=== PATIENT | female | born 1985 | race Caucasian/White ===

== ENCOUNTER 2018-05-22 13:46 | Emergency (ER) | END 2018-05-22 16:41 | disposition home or self-care (01) ==

== ENCOUNTER 2018-05-27 09:19 | Emergency (ER) | END 2018-05-27 10:06 | disposition left against medical advice (07) ==

== ENCOUNTER 2019-04-26 09:30 | Emergency (ER) | payer OTHER ==
[~2019-04-26] VITALS: Wt 67.0 kg
[~2019-04-26 09:30] MED LIST: AMOX500C2 PO; CEPH-443 PO; FLUT16SP17 NASAL; NPH10OT BOTH EARS
[2019-04-26 09:41] VITALS: BP 140/89; PULSE 84; RESP 18
--- NOTE | 2019-04-26 09:56 | ERD ---
ER Documentation Chief Complaint Chief Complaint BIZARRE BEHAVIOR, WANTS PHYSICAL? EXAM HPI 33-year-old female presents the emergency department with a number of different complaints. Patient is a tangential historian not providing significant details into any of her situations. Patient states that she has nasal congestion and wants a "physical exam. Again, she has no specific complaints at this time. She is denying auditory or visual hallucinations, suicidal or homicidal thoughts but is tangential to the point of not providing any significant detail. That said, she is able to tell me she has a care plan for self-care. ROS All systems reviewed and are negative except as per history of present illness. Medications Home Meds Active Scripts Fluticasone Propionate* (Fluticasone Propionate* Nasal) 50 Mcg/[place] - 16 Gm [place].susp, 1 SPRAY NASAL BID, #1 BOTTLE TO EACH NOSTRIL Prov:KENROY DOHERTY 04/26/19 Cephalexin* (Keflex*) 500 Mg Capsule, 500 MG PO QID for 5 Days, CAP Prov:MIKE COLÓN 10/23/18 Neomycin/Polymyxin/Hydrocort* (Cortisporin* Otic) 10 Ml Susp, 4 DROP BOTH EARS QID for 7 Days, EA Prov:CARLOZ YEUNG MD 05/22/18 Amoxicillin* (Amoxicillin*) 500 Mg Cap, 500 MG PO TID for 7 Days, CAP Prov:CARLOZ YEUNG MD 05/22/18 Allergies Allergies: Coded Allergies: No Known Allergy (Unverified , 05/22/18) PMhx/Soc Hx Psychiatric Problems: No Hx Miscellaneous Medical Probl: No Hx Alcohol Use: Yes (socially) Hx Substance Use: No Hx Tobacco Use: No Physical Exam Vitals Vital Signs Date Temp Pulse Resp B/P (MAP) Pulse Ox O2 O2 Flow FiO2 Time Delivery Rate 04/26/19 98.1 84 18 140/89 99 09:41 (106) Physical Exam GENERAL: The patient is well developed and appropriate for usual state of health in no apparent distress. She is dressed appropriate for the weather, but seems a bit disheveled HEENT: Pupils equal, round, and reactive to light. EOMI. There is no scleral icterus. NECK: C-spine is soft and supple, there is no meningismus. There is no cervical lymphadenopathy. LUNGS: Clear to auscultation bilaterally. There are no rales, wheezes or rhonchi. HEART: Regular rate and rhythm, no murmurs, clicks, rubs or gallops. ABDOMEN: Soft, non-tender, non-distended. There are bowel sounds in all four quadrants. No rebound or guarding. EXTREMITIES: There is no peripheral cyanosis or edema. No focal swelling or erythema. NEURO: The patient moves all four extremities with 5/5 strength. Cranial nerves II - XII are intact. Normal gait. Alert and oriented SKIN: There is no apparent rash or petechiae. HEME/LYMPHATIC: There is no evidence of excessive bruising or lymphedema. PSYCHIATRIC: Awake, alert. She is able to express a care plan for herself. There is no agitation or delirium. She has a tangential thought process and a slight flight of ideas but is not hyperverbal or violent. She is denying suicidal or homicidal thoughts at this time. Procedures/MDM Patient was taken to a room, seen and examined Medical decision makin-year-old female presents with what appears to be a rachna/psychosis. Patient however does not appear to be a danger to herself or others and seems able to negotiate the community. She has a number of other what appear to be minor complaints with no indication of significant emergent medical condition and seems appropriate for discharge at this time. Departure Condition: Stable Patient Instructions: Psychosis Referrals: [facility] YOU HAVE RECEIVED A MEDICAL SCREENING EXAM AND THE RESULTS INDICATE THAT YOU DO NOT HAVE A CONDITION THAT REQUIRES URGENT TREATMENT IN THE EMERGENCY DEPARTMENT. FURTHER EVALUATION AND TREATMENT OF YOUR CONDITION CAN WAIT UNTIL YOU ARE SEEN IN YOUR DOCTORS OFFICE WITHIN THE NEXT 1-2 DAYS. IT IS YOUR RESPONSIBILITY TO MAKE AN APPOINTMENT FOR FOLOW-UP CARE. IF YOU HAVE A PRIMARY DOCTOR --you should call your primary doctor and schedule an appointment IF YOU DO NOT HAVE A PRIMARY DOCTOR YOU CAN CALL OUR PHYSICIAN REFERRAL HOTLINE AT IF YOU CAN NOT AFFORD TO SEE A PHYSICIAN YOU CAN CHOSE FROM THE FOLLOWING [facility] [id number] [facility] [address] [facility]. [facility] [address] [facility] [address] [facility] [place] [address] [facility]. [facility]. [address] [facility] Additional Instructions: Please follow up with the psychiatric urgent care in [place] as soon as possible. Return for any problems or concerns KENROY DOHERTY Apr 26, 2019 09:56
== END 2019-04-26 10:14 | disposition home or self-care (01) ==
LOC: E/R 09:30
DX: F29 Unspecified psychosis not due to a substance or known physiological condition (principal)
CPT/HCPCS: 99282